=== PATIENT | male | born 1990 ===

== ENCOUNTER 2019-05-10 07:30 | Inpatient (IN) | payer OTHER ==
[~2019-05-10] VITALS: Ht 188 cm; Wt 103.4 kg
[2019-05-10] VITALS (14 sets, daily range): BP systolic 103–122; BP diastolic 65–81
[~2019-05-10 07:30] MED LIST: Pantoprazole Inj IVP ONE; Propofol 1,000mg/ 100ml btl IV ONE; Vancomycin 1gm/D5W 275ml IVPB ONE
[2019-05-10] MEDS ORDERED: CIPRO500 MG PO (09:19)
[2019-05-10] MEDS ORDERED: Bacitracin Oint 15gm Tube TOPIC ONE (09:48)
[2019-05-10] MEDS ORDERED: Bupivacaine w/Epi 0.5% 30ml Vial INJ ONE (09:49)
[2019-05-10] MEDS ORDERED: Gelfoam Size TOPIC ONE (09:49)
[2019-05-10] MEDS ORDERED: Bacitracin 50000 Units Vial ONE ×2 (09:49→16:01)
[2019-05-10] MEDS ORDERED: Thrombin 5000 units TOPIC ONE ×2 (09:49→09:50)
[2019-05-10] MEDS ORDERED: Heparin 1000 units/ml 1ml Vial ONE (09:50)
[2019-05-10] MEDS ORDERED: LR 1000ml 1,000 ML IVLG SCH (10:01)
--- NOTE | 2019-05-10 10:04 | Anethesia Preoperative Eval ---
Anesthesia Pre-op PMH/ROS General Date of Evaluation: May 10, 2019 Time of Evaluation: 14:54 Anesthesiologist: Isabela ASA Score: ASA 2 Mallampati Score Class I : Soft palate, uvula, fauces, pillars visible Class II: Soft palate, uvula, fauces visible Class III: Soft palate, base of uvula visible Class IV: Only hard plate visible Mallampati Classification: Class II Surgeon: Killian Diagnosis: Back Pain Surgical Procedure: PLIF L5-S1 Anesthesia History: none Family History: no anesthesia problems Allergies: Coded Allergies: No Known Allergies (Unverified , 05/07/19) Medications: see eMAR Patient NPO?: Yes NPO Date: May 09, 2019 NPO Time: 1100 Past Medical History Pulmonary: Reports: asthma PSxH Narrative: Ortho SX, T and A Anesthesia Pre-op Phys. Exam Physician Exam Last Vital Signs Date Time Temp Pulse Resp B/P (MAP) Pulse Ox O2 Delivery O2 Flow Rate FiO2 05/10/19 09:20 Room Air Constitutional: NAD Neurologic: CN 2-12 intact Cardiovascular: RRR Respiratory: CTA Gastrointestinal: S/NT/ND Airway Exam Mallampati Score: Class II MO: full ROM: full Teeth: intact Anesthesia Pre-op A/P Risk Assessment & Plan Assessment: ASA 2 Plan: GA, SED, GlideScope Go Status Change Before Surgery: No Pre-Antibiotics Dru Gram Vancomycin IV Given Within 1 Hr of Incision: Yes Time Given: 15:02 David Mar MD May 10, 2019 10:04
[2019-05-10] MEDS ORDERED: Pantoprazole Inj ONE (10:07)
[2019-05-10] MEDS ORDERED: Acetaminophen (Non formulary) 100 ML IV ONE (10:15)
[2019-05-10] MEDS ORDERED: fentaNYL 100 mcg/2 mL IV PRN ×2 (10:15→20:30)
[2019-05-10] MEDS ORDERED: Labetalol 5mg/ml 20ml vial IV PRN ×2 (10:15→20:45)
[2019-05-10] MEDS ORDERED: LORazepam Inj 2mg/ml 1ml IV PRN ×2 (10:15→20:45)
[2019-05-10] MEDS ORDERED: Atropine Sulfate 0.4mg/ml inj IVP PRN ×2 (10:15→20:45)
[2019-05-10] MEDS ORDERED: Midazolam 2mg/2ml Inj IVP PRN ×2 (10:15→20:45)
[2019-05-10] MEDS ORDERED: Meperidine 50mg/ml Inj(FOR RIGORS ONLY) IVP PRN ×2 (10:15→20:45)
[2019-05-10] MEDS ORDERED: HYDROcodone/Acetamin 7.5/325 tab ORAL PRN ×3 (10:15→20:30)
[2019-05-10] MEDS ORDERED: DiphenhydrAMINE 50mg/ml Inj IVP PRN ×2 (10:15→20:45)
[2019-05-10] MEDS ORDERED: Hydromorphone 0.5mg/0.5ml inj IVP PRN ×2 (10:15→20:30)
[2019-05-10] MEDS ORDERED: oxyCODONE HCL/Acetaminophen 5/325mg ORAL PRN ×2 (10:15→20:30)
[2019-05-10] MEDS ORDERED: Metoclopramide 10mg/2ml Inj IVP PRN ×2 (10:15→20:45)
[2019-05-10] MEDS ORDERED: Ketorolac 30mg Inj IV PRN ×4 (10:15→20:30)
[2019-05-10] MEDS ORDERED: HYDROcodone/Acetamin 5/325 tab ORAL PRN ×3 (10:15→20:30)
--- NOTE | 2019-05-10 13:12 | Immediate Post-Op Evaluation ---
Immediate Post-Op Evalulation Immediate Post-Op Evalulation Procedure: PLIF L5-S1 Date of Evaluation: May 10, 2019 Time of Evaluation: 20:17 IV Fluids: 1000 L:R Blood Products: 0 Estimated Blood Loss: 100 Urinary Output: 100 Blood Pressure Systolic: 120 Blood Pressure Diastolic: 74 Pulse Rate: 102 Respiratory Rate: 16 O2 Sat by Pulse Oximetry: 99 Temperature (Fahrenheit): 98.1 Pain Score (1-10): 2 Nausea: No Vomiting: No Complications 0 Patient Status: awake, reacts, patent, extubated, none Hydration Status: adequate Dru Gram Vancomycin IV Given Within 1 Hr of Incision: Yes Time Given: 15:02 David Mar MD May 10, 2019 13:12
[2019-05-10] MEDS ORDERED: Sodium Chloride 10ml vial INJ ONE (14:26)
[2019-05-10] MEDS ORDERED: Dexamethasone 4mg/ml vial ONE (14:26)
[2019-05-10] MEDS ORDERED: Lidocaine 1% MPF 10mg/ml 5ml ONE ×2 (14:26→18:18)
[2019-05-10] MEDS ORDERED: fentaNYL 100 mcg/2 mL IV ONE ×2 (14:35→16:24)
[2019-05-10] MEDS ORDERED: LR 1000ml ONE (15:00)
[2019-05-10] MEDS ORDERED: Zemuron 50mg/5ml Inj IV ONE (15:00)
[2019-05-10] MEDS ORDERED: Propofol 1,000mg/ 100ml btl IV ONE (15:00)
[2019-05-10] MEDS ORDERED: Sterile Water Irrig 1000ml IRRIG ONE (15:00)
[2019-05-10] MEDS ORDERED: NS Irrig 1000ml IRRIG ONE ×2 (16:16→16:20)
[2019-05-10] MEDS ORDERED: Lidocaine 1% Plain 30 ml INJ ONE (16:37)
[2019-05-10] MEDS ORDERED: Heparin 1000 units/ml 1ml Vial INJ ONE (17:58)
--- NOTE | 2019-05-10 20:23 | Pre-Procedure Note/Attestation ---
Pre-Procedure Note/Attestation Complete Prior to Procedure Planned Procedure: bilateral Procedure Narrative: bilateral L5-S1 lumbar decompression and interbody fusion with cage, pedicle screw fixation and posterolateral arthrodesis and use of allograft autograft and iliac crest bone marrow aspirate. Attestation I attest that I discussed the nature of the procedure; its benefits; risks and complications; and alternatives (and the risks and benefits of such alternatives ), prior to the procedure, with the patient (or the patient's legal community service representative). I attest that, if there was a reasonable possibility of needing a blood transfusion, the patient (or the patient's legal community service representative) was given the [place] [employer] standardized written summary, pursuant to the Shahab Alexis Blood Safety Act ([place] Health and Safety Code # 1645, as amended). I attest that I re-evaluated the patient just prior to the surgery and that there has been no change in the patient's H&P, except as documented below: Ekta Daily MD May 10, 2019 20:23
[2019-05-10] MEDS ORDERED: Naloxone 0.4mg/ml Inj IVP PRN (20:30)
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
--- NOTE | 2019-05-10 21:12 | General Progress Note ---
Progress Note Progress Note NEUROSURGERY POST OP S/ No leg pain . Incisional pain under control O/ Last 24 Hour Vital Signs Date Time Temp Pulse Resp B/P (MAP) Pulse Ox O2 Delivery O2 Flow Rate FiO2 05/10/19 21:05 98.4 98 14 110/69 100 Nasal Cannula 3 05/10/19 20:50 95 18 115/67 100 Nasal Cannula 3 05/10/19 20:35 102 21 111/67 100 Simple Mask 6 05/10/19 20:25 101 18 110/67 100 Simple Mask 6 05/10/19 20:15 101 14 111/65 100 Simple Mask 6 05/10/19 20:10 100 16 121/72 100 Simple Mask 6 05/10/19 20:06 98.1 101 17 117/69 100 Simple Mask 6 05/10/19 20:03 102 16 99 05/10/19 09:30 97.4 78 20 116/81 (93) 97 05/10/19 09:20 Room Air Alert and oriented x4 MAEW sensation is normal dressing dry HV minimal output doing well admit family was updated Ekta Daily MD May 10, 2019 21:11
--- NOTE | 2019-05-10 21:20 | NUR ---
NURSE NOTES: Patient admitted to room 317-1. Received report from Isidra MERCHANT BANKER. Back dressing intact, Hemovac intact draining sanguineous fluid. Lake catheter intact, draining clear yellow urine. Alert oriented, neuro checks done. Bed in low position, locked, side rails up x2, call light within reach. Will continue to monitor.
[2019-05-10] MEDS: HYDROmorphone 1mg/ml Carpuject IVP PRN (22:46)
[2019-05-11] MEDS ORDERED: Vancomycin 1.5 GM in D5W 275 ML IVPB SCH ×2
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
[2019-05-11] MEDS: HYDROmorphone 1mg/ml Carpuject IVP PRN ×3 (01:18→09:03)
[2019-05-11] MEDS: NS w/KCl 20mEq 1000ml 1,000 ML IV SCH ×3 (02:13→15:58)
[2019-05-11 04:00] VITALS: BP 100/63
[2019-05-11] MEDS: Cyclobenzaprine 10mg Tab ORAL PRN ×2 (06:00→17:09)
[2019-05-11 07:05] LABS: ANION GAP 6 mmol/L (5-15); BLOOD UREA NITROGEN 11 mg/dL (7-18); CALCIUM 8.1 MG/DL (8.5-10.1); CARBON DIOXIDE 28 MMOL/L (21-32); CHLORIDE 105 MMOL/L (98-107); CREATININE 1.1 MG/DL (0.55-1.30); POTASSIUM 4.3 MMOL/L (3.5-5.1); SODIUM 139 MMOL/L (136-145)
--- NOTE | 2019-05-11 07:40 | NUR ---
HAND-OFF: Report given to DIMAS Astudillo. Rounds done.
--- NOTE | 2019-05-11 07:44 | 48 Hour Post Anesthesia Eval ---
Post Anesthesia Evaluation Procedure: PLIF L5-S1 Date of Evaluation: May 11, 2019 Time of Evaluation: 07:43 Blood Pressure Systolic: 104 0: 58 Pulse Rate: 74 Respiratory Rate: 20 Temperature (Fahrenheit): 97.8 O2 Sat by Pulse Oximetry: 98 Airway: patent Nausea: No Vomiting: No Pain Intensity: 3 Hydration Status: adequate Cardiopulmonary Status: stable Mental Status/LOC: patient returned to baseline Follow-up Care/Observations: n/a Post-Anesthesia Complications: none Follow-up care needed: N/A Jose Burnham MD May 11, 2019 07:44
--- NOTE | 2019-05-11 07:51 | NUR ---
NURSE NOTES: Received report from DIMAS Sigala. Rounding done with outgoing nurse. Pt a/o x 4, in bed. No respiratory distress noted. Denies pain at this time. Rt hand IV site is patent. Back surgical site dressing is C/D/I. Hemovac is in placed. Bed in lowest position, call light within reach. Will continue to monitor.
--- NOTE | 2019-05-11 07:57 | NUR ---
NURSE NOTES: Left message with exchange regarding request for MD consult for post op management to Dr Carballo.
[2019-05-11 08:00] VITALS: BP 101/63
[2019-05-11] MEDS: Docusate Sod/Senna tab ORAL SCH ×2 (09:03→17:08)
[2019-05-11] MEDS: Docusate 100mg cap ORAL SCH ×2 (09:03→17:08)
--- NOTE | 2019-05-11 09:35 | NUR ---
PT EVALUATION NOTE Patient seen for initial evaluation, see complete evaluation for details. Patient presents with pain and generalized weakness following lumbar surgery. Patient instructed in back precautions and log roll technique. Patient required CGA for bed mobility and SBA for transfers with FWW. Patient unable to ambulate due to c/o nausea and dizziness. Patient will benefit from skilled inpatient PT intervention to improve transfers, increase knowledge regarding back precautions and to increase ambulation status and safety. Anticipate discharge home once medically cleared by MD. Recommend FWW for home use during transfers and ambulation. Addendum: 05/11/19 at 1125 by MILAD PASTOR PT Amended: Links added. Addendum: 05/11/19 at 1153 by MILAD PASTOR PT Recommend raised toilet seat for home use
--- NOTE | 2019-05-11 09:50 | NUR ---
NURSE NOTES: Dr. Daily called and notified about pt's condition that pt has nausea, dizziness after dilaudid was given. ordered hold dilaudid. Noted and carried out.
--- NOTE | 2019-05-11 09:50 | NUR ---
NURSE NOTES: Dr. Lambert called and notified about pt's condition that pt has nausea, dizziness after dilaudid was given. ordered hold dilaudid. Noted and carried out. Addendum: 05/11/19 at 1114 by Lou Chino RN Discard please!! wrong Dr. arellano.
[2019-05-11 12:00] VITALS: BP 107/59
[2019-05-11] MEDS ORDERED: Vancomycin 275 ML IVPB SCH (12:00)
[2019-05-11] MEDS: HYDROcodone/Acetamin 7.5/325 tab ORAL PRN ×4 (12:34→22:06)
--- NOTE | 2019-05-11 12:57 | NUR ---
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 97.4 HR 70 RR 20 B/P 116/81 CA 8.1 IS: VANCO IV IVF NS KCL@ 100ML/HR ADMITTED TO MED/SURG MED/SURG STATUS
[2019-05-11] MEDS ORDERED: Tubing IV Secondary IV ONE ×2 (14:41→14:44)
--- NOTE | 2019-05-11 15:05 | General Progress Note ---
Progress Note Progress Note Neurosurgery POD #1 S/ Pian under control. No leg pain. Ambulated and voided O/ Vs. Last 24 Hour Vital Signs Date Time Temp Pulse Resp B/P (MAP) Pulse Ox O2 Delivery O2 Flow Rate FiO2 05/11/19 14:20 Room Air 05/11/19 12:00 98.7 74 20 107/59 (75) 95 05/11/19 09:00 Room Air 05/11/19 08:00 98.6 81 18 101/63 (76) 98 05/11/19 07:44 74 20 98 05/11/19 04:00 98.7 76 18 100/63 (75) 98 05/10/19 23:30 98.2 88 18 103/68 (80) 97 05/10/19 22:30 97.4 88 17 122/76 (91) 97 05/10/19 21:45 Nasal Cannula 3.0 05/10/19 21:30 98.6 95 18 105/69 (81) 97 05/10/19 21:20 98.4 05/10/19 21:05 98.4 98 14 110/69 100 Nasal Cannula 3 05/10/19 20:50 95 18 115/67 100 Nasal Cannula 3 05/10/19 20:35 102 21 111/67 100 Simple Mask 6 05/10/19 20:25 101 18 110/67 100 Simple Mask 6 05/10/19 20:15 101 14 111/65 100 Simple Mask 6 05/10/19 20:10 100 16 121/72 100 Simple Mask 6 05/10/19 20:06 98.1 101 17 117/69 100 Simple Mask 6 05/10/19 20:03 102 16 99 Alert and orientd x4 family at bedside MAEW normal sensation HV removed Incision C/D/I labs: Laboratory Tests Test 05/11/19 04:35 Sodium Level 139 MMOL/L (136-145) Potassium Level 4.3 MMOL/L (3.5-5.1) Chloride Level 105 MMOL/L (98-107) Carbon Dioxide Level 28 MMOL/L (21-32) Anion Gap 6 mmol/L (5-15) Blood Urea Nitrogen 11 mg/dL (7-18) Creatinine 1.1 MG/DL (0.55-1.30) Estimat Glomerular Filtration Rate > 60 mL/min (>60) Glucose Level 141 MG/DL (74-106) H Calcium Level 8.1 MG/DL (8.5-10.1) L doing well d/c plannig d/c instructions removed with pt and nursing Ekta Daily MD May 11, 2019 15:05
--- NOTE | 2019-05-11 15:12 | NUR ---
NURSE NOTES: Dr. Daily ordered raised toilet seat, cane. Noted and carried out.
--- NOTE | 2019-05-11 15:42 | NUR ---
NURSE NOTES: Cane, raised toilet seat were given to pt.
--- NOTE | 2019-05-11 15:54 | Diagnostic Imaging Report ---
Indication: Back pain Technique: Intraoperative fluoroscopic images submitted for archival the PACS Operating surgeon: Killian Fluoroscopy time: 50.2 seconds Total fluoroscopy dose: 25.19 mGy Number of fluoroscopic images obtained: 9 Comparison: None Findings: Intraoperative images submitted for archival the PACS. Initial images demonstrate surgical material projecting posterior to the expected level of L4-5 and L5-S1 (note the entire lumbar spine not imaged to assess for the presence of transitional lumbosacral anatomy). Subsequent images demonstrate surgical material/instruments at the presumed L5-S1 level with ultimate posterior fusion at L5-S1 by means of. Posterior rods affixed by 2 screws at each level. There is a disc spacer/surgical material in the presumed L5-S1 disc space. Note that the radiologist was not present during image acquisition. Impression: Intraoperative images from spinal surgery. Please see operative report.
[2019-05-11 16:00] VITALS: BP 105/67
--- NOTE | 2019-05-11 17:30 | NUR ---
NURSE NOTES: Received discharge medicine from [facility] pharmacy and store to our pharmacy.
[2019-05-11] MEDS: Milk of Magnesia 30ml Ud ORAL PRN (19:16)
--- NOTE | 2019-05-11 19:35 | NUR ---
HAND-OFF: Report given to DIMAS Gardner.
[2019-05-11 20:00] VITALS: BP 94/60
--- NOTE | 2019-05-11 20:22 | NUR ---
Nurse's notes: received patient awake, alert and oriented; father and girlfriend by bedside. c/o of 04/11 pain; pain management education given; encouraged non-pharmacological interventions for pain; patient receptive to education. No neuro deficits noted; denies numbness and tingling on all extremities; able to move extremities without any pain. will continue to monitor and follow plan of care.
[2019-05-12] VITALS (7 sets, daily range): BP systolic 89–105; BP diastolic 48–73
[2019-05-12] MEDS: NS w/KCl 20mEq 1000ml 1,000 ML IV SCH ×3 (01:14→22:15)
[2019-05-12] MEDS: Cyclobenzaprine 10mg Tab ORAL PRN (01:14)
[2019-05-12] MEDS: traMADol 50mg tab ORAL PRN ×2 (02:15→11:05)
--- NOTE | 2019-05-12 02:50 | NUR ---
nurse's notes: low grade fever noted at MN; cooling measures done, encouraged patient to increase frequency of IS usage and increase water intake. unable to given tylenol as patient has taken 2.6 gms. will continue to monitor closely
[2019-05-12] MEDS: oxyCODONE 5mg IR tab ORAL PRN ×3 (06:31→18:57)
--- NOTE | 2019-05-12 06:47 | NUR ---
nurse's notes: New orders received from Dr. Dialy for UA and CXR for a temperature of 101.8F at 0400 and Oyxcodone 10mg for unrelieved pain as patient has almost maxed out at 2.8 grams his tylenol within 24 hours. Discharge was also cancelled due to this new health conditions. advised patient and father of new orders. Addendum: 05/12/19 at 0706 by MARCUS ABDI RN cooling measures done; encouraged use of incentive spirometer and increase intake of fluids. patient and father understood importance of education and agrees to plan of care.
--- NOTE | 2019-05-12 07:40 | NUR ---
NURSE NOTES: Received report from DIMAS Gardner. Pt is asleep. No respiratory distress noted. Father is at bedside. Bed in lowest position, call light within reach. Will continue to monitor.
--- NOTE | 2019-05-12 08:32 | NUR ---
RADIOLOGY DEPT., CHEST X-RAY DONE.-P.DYE
--- NOTE | 2019-05-12 08:42 | Diagnostic Imaging Report ---
EXAM: XR Chest, 1 View CLINICAL HISTORY: INFECT TECHNIQUE: Frontal view of the chest. COMPARISON: No relevant prior studies available. FINDINGS: Lungs: Unremarkable. The lungs appear clear. No focal consolidation. Pleural space: Unremarkable. The costophrenic angles are sharp. No visible pneumothorax. Heart: Unremarkable. No cardiomegaly. Mediastinum: Unremarkable. Bones/joints: Unremarkable. IMPRESSION: No acute findings.
[2019-05-12] MEDS: Milk of Magnesia 30ml Ud ORAL PRN (08:44)
[2019-05-12] MEDS: Docusate Sod/Senna tab ORAL SCH ×2 (08:44→17:55)
[2019-05-12] MEDS: Docusate 100mg cap ORAL SCH ×2 (08:44→17:50)
[2019-05-12 10:04] LABS: APPEARANCE,URINE CLEAR; BILIRUBIN, URINE NEGATIVE (NEGATIVE); COLOR,URINE PALE YELLOW; GLUCOSE, URINE (UA) NEGATIVE (NEGATIVE); KETONES,URINE 2+ (NEGATIVE); LEUKOCYTE ESTERASE ,URINE NEGATIVE (NEGATIVE); NITRITE,URINE NEGATIVE (NEGATIVE); PH,URINE 7 (4.5-8.0); PROTEIN,URINE NEGATIVE (NEGATIVE); UROBILINOGEN,URINE NORMAL MG/DL (0.0-1.0)
--- NOTE | 2019-05-12 13:44 | NUR ---
NURSE NOTES: Dr. Daily was notified that pt keep c/o back pain. MD ordered 5mg of morphine IV one time and after 1 hr pain level is greater that 7 give 5mg of morphine agian, 30cc Lactulose po one time. Ambulating nursing station at least 3x a day. If pt pain level is lower than 4 and pt have BM, pt can be d/c. Noted and carried out.
[2019-05-12] MEDS ORDERED: Morphine Sulfate 4mg/ml Inj (IV USE ONLY) IVP SCH (14:00)
[2019-05-12] MEDS ORDERED: Lactulose 20gm/30ml UDC ORAL SCH (14:00)
--- NOTE | 2019-05-12 14:10 | NUR ---
NURSE NOTES: Pt ambulated hallway with PT.
--- NOTE | 2019-05-12 15:54 | NUR ---
NURSE NOTES: Dr. Daily called and update was given. ordered D/C tomorrow. Noted and carried out.
--- NOTE | 2019-05-12 17:31 | Diagnostic Imaging Report ---
EXAM: US Duplex Bilateral Lower Extremity Veins CLINICAL HISTORY: DVT TECHNIQUE: Real-time duplex ultrasound scan of the bilateral lower extremity veins integrating B-mode two-dimensional vascular structure, Doppler spectral analysis, color flow Doppler imaging and compression. COMPARISON: No relevant prior studies available. FINDINGS: Right deep veins: Unremarkable. No DVT in the right common femoral, femoral, proximal deep femoral or popliteal veins. The veins demonstrate normal color flow, are normally compressible, with normal phasic flow and/or augmentation response. Right superficial veins: Unremarkable. No thrombus in the visualized right great saphenous vein. Left deep veins: Unremarkable. No DVT in the left common femoral, femoral, proximal deep femoral or popliteal veins. The veins demonstrate normal color flow, are normally compressible, with normal phasic flow and/or augmentation response. Left superficial veins: Unremarkable. No thrombus in the visualized left great saphenous vein. Soft tissues: No acute findings. No popliteal cyst. IMPRESSION: Normal bilateral lower extremity duplex venous ultrasound.
[2019-05-12] MEDS: HYDROcodone/Acetamin 7.5/325 tab ORAL PRN ×2 (17:51→21:14)
--- NOTE | 2019-05-12 18:41 | NUR ---
NURSE NOTES: Pt ambulating with assistance in stable condition.
--- NOTE | 2019-05-12 19:30 | NUR ---
NURSE NOTES: Received report from DIMAS Astudillo and rounds made with outgoing nurse. Received pt lying on the left lateral side, AOx4, pain level 7/10, no distress noted. Posterior surgical dressing C/D/I. Neuro check wnl. IV L hand patent and intact. IV fluid infusing as ordered. Temp. 100.9, instructed pt to use incentive spirometry every hour while awake. Pt verbalized understanding.Families at bedside. Bed in lowest position and locked, side rails up x 2, call light within reach. Will continue to monitor.
--- NOTE | 2019-05-12 19:33 | NUR ---
HAND-OFF: Report given to DIMAS Stewart.
[2019-05-13] VITALS: BP 107/70
[2019-05-13] MEDS: HYDROcodone/Acetamin 7.5/325 tab ORAL PRN ×2 (00:15→03:32)
[2019-05-13] MEDS: oxyCODONE 5mg IR tab ORAL PRN ×2 (01:01→07:01)
[2019-05-13 04:00] VITALS: BP 100/56
--- NOTE | 2019-05-13 07:05 | NUR ---
HAND-OFF: Report given to DIMAS Astudillo. Pt in stable condition.
--- NOTE | 2019-05-13 07:10 | NUR ---
NURSE NOTES: Received report from DIMAS Stewart.
--- NOTE | 2019-05-13 07:30 | NUR ---
NURSE NOTES: Received patient A/A/Ox4, able to make things known. ambulatory without any distress. surgical drsg on lower back is dry, clean and intact. ice pack applied and placed. No apparent distress noted. IV heplock on Left hand patent and intact. IV fluid infusing well. instructed pt to use incentive spirometry 10x while a every hour. Pt verbalized understanding. Families at bedside. Bed in lowest position and locked, side rails up x 2, call light within reach. Will continue to monitor.
--- NOTE | 2019-05-13 07:54 | NUR ---
HAND-OFF: Report given to IVAN Torres.
[2019-05-13 08:00] VITALS: BP 92/63
[2019-05-13] MEDS: NS w/KCl 20mEq 1000ml 1,000 ML IV SCH (08:23)
[2019-05-13] MEDS: Docusate Sod/Senna tab ORAL SCH (08:23)
[2019-05-13] MEDS: Docusate 100mg cap ORAL SCH (08:23)
[2019-05-13] MEDS ORDERED: PERCOCET 10-321 EACH ORAL (10:03)
--- NOTE | 2019-05-13 10:58 | NUR ---
NURSE NOTES: d/c to home via private transportation. father, Chang @ bedside. personal belongings noted s/t/d. verified home address. given d/c instructions. tolerating food intake well. Rx given and instructed. informed f/u with Dr. Daily. waiting for his ride. VSS. will cont to monitor.
--- NOTE | 2019-05-13 11:21 | NUR ---
NURSE NOTES: D/C HOME VIA WHEELCHAIR. SIGNIFICANT OTHER AND FATHER @ BEDSIDE. ALL PERSONAL BELONGINGS NOTED AND DME'S WELL. RX HANDED TO THE DAD AND EXPLAINED TO THE PATIENT AND DAD ABOUT THE DIRECTIONS. REMOVED IV HEPLOCK. IN STABLE CONDITION. VSS.
--- NOTE | 2019-05-14 08:07 | NUR ---
WARD SUPERVISOR Co-Signature Notes: Reviewed patient's chart. Reviewed and approved WARD SUPERVISOR notes Addendum: 05/14/19 at 0808 by MG GOVEA PT Amended: Links added.
--- NOTE | 2019-05-14 08:07 | NUR ---
IN FILE OPERATOR Co-Signature Notes: Reviewed patient's chart. Reviewed and approved IN FILE OPERATOR notes Addendum: 05/14/19 at 0807 by CINDI SILVERMAN PTMG Amended: Links added.
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
== END 2019-05-13 11:25 | disposition home or self-care (01) | DRG 455 ==
LOC: SDSOVERFLO 08:33 → 3E 22:20
PROC: 0ST40ZZ Resection of Lumbosacral Disc, Open Approach (ICD-10-PCS; principal; 2019-05-10 11:00)
PROC: 00NY0ZZ Release Lumbar Spinal Cord, Open Approach (ICD-10-PCS; principal; 2019-05-10 11:00)
PROC: 0SG3071 Fusion of Lumbosacral Joint with Autologous Tissue Substitute, Posterior Approach, Posterior Column, Open Approach (ICD-10-PCS; principal; 2019-05-10 11:00)
PROC: 0SG30A0 Fusion of Lumbosacral Joint with Interbody Fusion Device, Anterior Approach, Anterior Column, Open Approach (ICD-10-PCS; principal; 2019-05-10 11:00)
PROC: 01NR0ZZ Release Sacral Nerve, Open Approach (ICD-10-PCS; principal; 2019-05-10 11:00)
PROC: 07DR0ZZ Extraction of Iliac Bone Marrow, Open Approach (ICD-10-PCS; principal; 2019-05-10 11:00)
PROC: 01NB0ZZ Release Lumbar Nerve, Open Approach (ICD-10-PCS; principal; 2019-05-10 11:00)
DX: M51.26 Other intervertebral disc displacement, lumbar region (principal); M48.061 Spinal stenosis, lumbar region without neurogenic claudication; M51.37 Other intervertebral disc degeneration, lumbosacral region; V89.2XXS Person injured in unspecified motor-vehicle accident, traffic, sequela
CPT/HCPCS: 36415; 71045; 72020; 76000; 80048; 81001; 86850; 86900; 86901; 87081; 93970; 94003; 94150; C9399; J2405